=== PATIENT | female | born 1960 | race Caucasian/White ===

== ENCOUNTER → 2016-12-01 | Outpatient (CLI) | payer BC | END | disposition home or self-care (01) | LOC: LABWHC1 09:45 | PROVIDERS: ATTEND Internal Medicine | DX: E03.9 Hypothyroidism, unspecified (principal) | CPT/HCPCS: 36415; 84439; 84443 ==

== ENCOUNTER → 2017-01-11 | Outpatient (CLI) | payer BC | END | disposition home or self-care (01) | LOC: LABWHC1 09:38 | PROVIDERS: ATTEND Internal Medicine | DX: E03.9 Hypothyroidism, unspecified (principal) | CPT/HCPCS: 36415; 84443 ==

== ENCOUNTER 2017-02-05 07:01 | Day surgery (SDC) | payer BC ==
[2017-02-03 15:04] VITALS: BMI 23.3
[~2017-02-05 07:01] MED LIST: LACTATED RINGERS 1,000 ML IV SCH
[2017-02-05 07:13] VITALS: TEMP 98
[2017-02-05] MEDS ORDERED: LACTATED RINGERS 1,000 ML IV ONE (07:15)
[2017-02-05] MEDS ORDERED: LIDOCAINE 1% 20 ML VIAL (10MG/ML) FOR IV START INTRADERMA ONE (07:18)
[2017-02-05] MEDS ORDERED: PROPOFOL 10 MG/ML 20 ML VIAL IV ONE (08:06)
--- NOTE | 2017-02-05 08:24 | P.PCN ---
Date of Procedure: 02/05/17 Preoperative Diagnosis: Postoperative Diagnosis: Procedure(s) Performed: BRIEF HISTORY: Patient is a 56-year-old pleasant white female, scheduled for an elective colonoscopy as a part of change in her bowel habits. She had an episode of C. diff colitis and since that has been having some diarrhea with one to 2 loose bowel movements daily. She denies any rectal bleeding. PROCEDURE PERFORMED: Colonoscopy. PREOPERATIVE DIAGNOSIS: Change in bowel habits IV sedation per Anesthesia. PROCEDURE: After informed consent was obtained, the patient, was brought into the endoscopy unit. IV sedation was administered by Anesthesia under continuous monitoring. Digital rectal examination was normal. Initially the Olympus CF- 160 flexible video colonoscope was then inserted in the rectum, gradually advanced into the cecum without any difficulty. Careful examination was performed as the scope was gradually being withdrawn. Ileocecal valve and the appendiceal orifice were visualized and appeared normal. Prep was excellent. Mucosa of the cecum, ascending colon, transverse colon, descending colon, sigmoid colon, and rectum appeared normal. Retroflexion was performed in the rectum and no lesions were seen. The patient tolerated the procedure well. IMPRESSION: Normal-appearing colon from rectum to cecum with no evidence of colorectal neoplasia . RECOMMENDATIONS: Findings of this examination were discussed with the patient as well as a family. She was advised to have a repeat screening colonoscopy in 10 years. Implants: Indications for Procedure: Operative Findings: Description of Procedure:
[2017-02-05 08:29] VITALS: RESP 16
[2017-02-05 08:44] VITALS: BP 97/53; PULSE 62
== END 2017-02-05 09:02 | disposition home or self-care (01) ==
LOC: ORWHC2ENDO 07:01
PROVIDERS: ATTEND Internal Medicine Gastroenterology
DX: R19.4 Change in bowel habit (principal); Z87.19 Personal history of other diseases of the digestive system; E07.9 Disorder of thyroid, unspecified; Z79.899 Other long term (current) drug therapy
CPT/HCPCS: 45378; J2704

== ENCOUNTER → 2017-05-06 | Outpatient (CLI) | payer BC ==
[2017-05-06 11:04] LABS: Potassium 4.8 mmol/L (3.5-5.1)
== END | disposition home or self-care (01) ==
LOC: LABWHC1 10:09
PROVIDERS: ATTEND Internal Medicine
DX: E87.5 Hyperkalemia (principal); R74.8 Abnormal levels of other serum enzymes
CPT/HCPCS: 36415; 84132; 84450; 84460

== ENCOUNTER → 2017-05-11 | Outpatient (CLI) | payer BC ==
--- NOTE | 2017-05-11 10:00 | US ---
EXAMINATION TYPE: US liver DATE OF EXAM: 05/11/2017 COMPARISON: CT 2016 CLINICAL HISTORY: R74.8 elevated liver enzymes. Patient stated has had 3 doses anesthesia this year; just discovered is allergic to dairy; on thyroid medication EXAM MEASUREMENTS: Liver Length: 14.6 cm Gallbladder Wall: 0.2 cm CBD: 0.3 cm Right Kidney: 10.9 x 5.2 x 4.3 cm Pancreas: Tail obscured by overlying bowel gas Liver: mildly hyperechoic Gallbladder: wnl Evidence for sonographic Maciel's sign: No CBD: wnl Right Kidney: wnl IMPRESSION: 1. Pattern of liver suggestive of fatty infiltration. Hepatitis or hepatocellular disease also in the differential diagnosis.
== END | disposition home or self-care (01) ==
LOC: RADUSWWP 09:13
PROVIDERS: ATTEND Internal Medicine
DX: R74.8 Abnormal levels of other serum enzymes (principal)
CPT/HCPCS: 76705

== ENCOUNTER → 2017-06-30 | Outpatient (CLI) | payer BC | END | disposition home or self-care (01) | LOC: LABWHC1 15:04 | PROVIDERS: ATTEND Internal Medicine | DX: R19.7 Diarrhea, unspecified (principal) | CPT/HCPCS: 36415; 86677 ==

== ENCOUNTER → 2018-03-22 | Outpatient (CLI) | payer BC | END | disposition home or self-care (01) | LOC: LABWHC1 15:58 | PROVIDERS: ATTEND Internal Medicine | DX: E03.9 Hypothyroidism, unspecified (principal) | CPT/HCPCS: 36415; 84443 ==

== ENCOUNTER → 2018-04-26 | Outpatient (CLI) | payer BC | END | disposition home or self-care (01) | LOC: LABWHC1 13:14 | PROVIDERS: ATTEND Internal Medicine | DX: E03.9 Hypothyroidism, unspecified (principal) | CPT/HCPCS: 36415; 84443 ==

== ENCOUNTER → 2018-05-23 | Outpatient (CLI) | payer BC ==
[2018-05-23 17:03] LABS: Basophils % (A) 1 %; Eosinophils # (A) 0.2 k/uL (0-0.7); Eosinophils % (A) 3 %; HCT 40.5 % (34.0-46.0); HGB 13.5 gm/dL (11.4-16.0); Lymphocytes % (A) 27 %; MCH 30.1 pg (25.0-35.0); MCHC 33.3 g/dL (31.0-37.0); MCV 90.4 fL (80.0-100.0); Mean Platelet Volume 6.8; Monocytes # (A) 0.6 k/uL (0-1.0); Monocytes % (A) 8 %; Neutrophils # (A) 4.2 k/uL (1.3-7.7); Neutrophils % (A) 59 %; Platelet Count 233 k/uL (150-450); RBC 4.48 m/uL (3.80-5.40); RDW 13.3 % (11.5-15.5); WBC 7.1 k/uL (3.8-10.6)
[2018-05-23 17:34] LABS: ALT 22 U/L (9-52); AST 28 U/L (14-36); Albumin 3.9 g/dL (3.5-5.0); Alkaline Phosphatase 59 U/L (38-126); Anion Gap 7 mmol/L; Blood Urea Nitrogen 17 mg/dL (7-17); Calcium 9.4 mg/dL (8.4-10.2); Carbon Dioxide 27 mmol/L (22-30); Chloride 107 mmol/L (98-107); Glucose 83 mg/dL (74-99); LDH 534 U/L (313-618); Sodium 141 mmol/L (137-145); Total Bilirubin 0.3 mg/dL (0.2-1.3); Total Protein 6.8 g/dL (6.3-8.2)
[2018-05-23 21:12] LABS: Erythrocyte Sedimentation Rate 6 mm/hr (0-20)
== END | disposition home or self-care (01) ==
LOC: LABWHC1 16:00
PROVIDERS: ATTEND Internal Medicine
DX: C50.919 Malignant neoplasm of unspecified site of unspecified female breast (principal); M54.2 Cervicalgia
CPT/HCPCS: 36415; 80053; 83615; 85025; 85652

== ENCOUNTER → 2018-08-30 | Outpatient (CLI) | payer BC ==
[2018-08-31 02:12] LABS: T4, Free (Free Thyroxine) 1.3 ng/dL (0.80-1.80)
== END | disposition home or self-care (01) ==
LOC: LABWHC1 16:39
PROVIDERS: ATTEND Internal Medicine
DX: E03.9 Hypothyroidism, unspecified (principal)
CPT/HCPCS: 36415; 84439; 84443; 84481

== ENCOUNTER → 2018-10-03 | Outpatient (CLI) | payer BC ==
[2018-10-03 12:16] LABS: Appearance,Urine Clear (Clear); Bilirubin,Urine Negative (Negative); Blood,Urine Negative (Negative); Color,Urine Light Yellow; Glucose,Urine (UA) Negative (Negative); Ketones,Urine Negative (Negative); Leukocyte Esterase,Urine Negative (Negative); Nitrite,Urine Negative (Negative); Protein,Urine Negative (Negative); Specific Gravity,Urine 1.006 (1.001-1.035); Urobilinogen,Urine <2.0 mg/dL (<2.0)
[2018-10-03 12:19] LABS: Basophils # (A) 0.1 k/uL (0-0.2); Basophils % (A) 1 %; Eosinophils # (A) 0.2 k/uL (0-0.7); Eosinophils % (A) 3 %; HCT 43.2 % (34.0-46.0); HGB 14.3 gm/dL (11.4-16.0); Lymphocytes # (A) 1.7 k/uL (1.0-4.8); Lymphocytes % (A) 30 %; MCH 29.1 pg (25.0-35.0); MCV 88.3 fL (80.0-100.0); Mean Platelet Volume 6.7; Monocytes # (A) 0.5 k/uL (0-1.0); Monocytes % (A) 8 %; Neutrophils # (A) 3.1 k/uL (1.3-7.7); Neutrophils % (A) 56 %; Platelet Count 254 k/uL (150-450); RDW 13.7 % (11.5-15.5); WBC 5.7 k/uL (3.8-10.6)
[2018-10-03 13:41] LABS: Erythrocyte Sedimentation Rate 6 mm/hr (0-20)
[2018-10-03 18:35] LABS: Rheumatoid Factor 8 IU/mL (0-15)
[2018-10-03 18:38] LABS: Albumin 4.1 g/dL (3.80-4.90); Albumin/Globulin Ratio 1.95 (1.60-3.17); Anion Gap 6.4 mmol/L (4.00-12.00); Carbon Dioxide 27.6 mmol/L (21.6-31.8); Globulin 2.1 g/dL (1.6-3.3); Potassium 4.7 mmol/L (3.5-5.5); Total Bilirubin 0.4 mg/dL (0.2-1.2); Total Protein 6.2 g/dL (6.2-8.2)
[2018-10-03 18:45] LABS: Vitamin D 25 Hydroxy 44.9 ng/mL (30.0-100.0)
[2018-10-03 18:51] LABS: Folate, Serum >24.0 ng/mL
[2018-10-03 20:47] LABS: Cyclic Citrullinated Pep IgG NEGATIVE (NEGATIVE)
== END | disposition home or self-care (01) ==
LOC: LABWHC1 10:40
PROVIDERS: ATTEND Internal Medicine
DX: Z00.00 Encounter for general adult medical examination without abnormal findings (principal); M25.50 Pain in unspecified joint; R53.83 Other fatigue; E55.9 Vitamin D deficiency, unspecified
CPT/HCPCS: 36415; 80053; 80061; 81003; 82306; 82550; 82607; 82746; 85025; 85652; 86038; 86200; 86431

== ENCOUNTER → 2018-11-11 | Outpatient (CLI) | payer BC ==
[2018-11-11 18:59] LABS: T4, Free (Free Thyroxine) 1.5 ng/dL (0.80-1.80)
== END ==
LOC: LABWHC1 13:38
PROVIDERS: ATTEND Internal Medicine
DX: E03.9 Hypothyroidism, unspecified (principal)
CPT/HCPCS: 36415; 84439; 84443; 84481

== ENCOUNTER → 2020-02-09 | Outpatient (CLI) | payer BC ==
--- NOTE | 2020-02-09 13:21 | PE ---
Nuclear medicine PET/CT HISTORY: Malignant tumor of left breast, C 50.919, subsequent Patient received 9.2 mCi F-18 FDG intravenously in delayed scanning was performed from skull base to the mid thighs. Localization and attenuation correction CT scan was performed. Correlation to CT chest abdomen pelvis 04/20/2016 Neck and chest: There is no mediastinal, axillary, or hilar adenopathy. Patient is status post bilate ral mastectomies. Surgical clips present left axilla. No cervical or supraclavicular adenopathy. No s uspicious hypermetabolic uptake. ABDOMEN: No suspicious uptake. No retroperitoneal adenopathy or liver mass. No ascites. Graph osseous structures: No suspicious uptake. IMPRESSION: Postop changes. No suspicious uptake.
== END | disposition home or self-care (01) ==
LOC: RADPETMAIN 08:59
PROVIDERS: ATTEND Internal Medicine
DX: C50.812 Malignant neoplasm of overlapping sites of left female breast (principal); Z98.890 Other specified postprocedural states
CPT/HCPCS: 78815; A9552

== ENCOUNTER → 2020-06-13 | Outpatient (CLI) | payer BC ==
--- NOTE | 2020-06-13 22:35 | CT ---
EXAMINATION TYPE: CT sinus wo con DATE OF EXAM: 06/13/2020 COMPARISON: 10/09/2014 HISTORY: BANKS, chronic sinusitis and drainage CT DLP: 636.4 mGycm CONTRAST: 0 mL of Isovue 300 The paranasal sinuses are examined in the axial plane at 2 mm thick sections. Reconstructed images i n the coronal plane were obtained. Mastoid air cells within the [id number] are clear. There is a tiny retention cyst within the right maxillary sinus left maxillary sinus is clear. The e thmoid air cells are clear. The sphenoid sinuses are clear. The frontal sinuses are clear. The septum is evaluated. There is septal deviation to the left. The ostiomeatal units are patent. IMPRESSIONS: 1. Tiny new retention cyst within the posterior right maxillary sinus.
== END | disposition home or self-care (01) ==
LOC: RADCTMAIN 18:17
PROVIDERS: ATTEND Internal Medicine
DX: J34.1 Cyst and mucocele of nose and nasal sinus (principal)
CPT/HCPCS: 70486

== ENCOUNTER → 2023-12-03 | Outpatient (CLI) | payer BC ==
--- NOTE | 2023-12-06 13:30 | BMR ---
EXAM DATE: 12/03/2023 EXAM DESCRIPTION: MRI-Breast Bilat (W/WO Contrast) INDICATION: Previous history of bilateral mastectomy and breast cancer surveillance COMPARISON: PRIOR MRIs: None available. Correlation to mammograms: None available . Correlation to ultrasound: None available. CONTRAST: 6.5 cc Gadavist IV gadolinium contrast TECHNIQUE: Study was performed at [facility] with Radiologic interpretation by [facility] Multiplanar multisequence MR imaging of both breasts was performed with a dedicated breast coil. Images were obtained before and after administration of IV gadolinium, using the standard breast mass protocol. Computer aided detection was utilized for interpretation. FINDINGS: General breast composition: Not applicable Background parenchymal enhancement: Minimal RIGHT BREAST: The T2 weighted series shows no areas of abnormal signal intensity. Review of the dynamic series shows no early or abnormal enhancement. LEFT BREAST: The T2 weighted series shows no areas of abnormal signal intensity. Review of the dynamic series shows no early or abnormal enhancement. LYMPH NODES: There is no evidence of internal mammary or axillary adenopathy. IMPRESSION: RIGHT BREAST: No MR evidence of malignancy. LEFT BREAST: No MR evidence of malignancy. OVERALL ASSESSMENT -- BI- RADS 1: Negative MTDD
== END | disposition home or self-care (01) ==
LOC: RADMRIMAIN 07:00
PROVIDERS: ATTEND Family Medicine
DX: C50.912 Malignant neoplasm of unspecified site of left female breast (principal); Z85.3 Personal history of malignant neoplasm of breast; Z90.13 Acquired absence of bilateral breasts and nipples
CPT/HCPCS: 77049; A9585

== ENCOUNTER 2024-01-17 07:39 | Day surgery (SDC) | payer BC ==
[~2024-01-17 07:39] MED LIST changes: +HYDROmorphone 0.5 MG/0.5 ML SYRINGE IVP PRN; -LACTATED RINGERS 1,000 ML IV SCH; +LIDOCAINE 1% (10MG/ML) FOR IV START INTRADERMA PRN; +Pre Op ABX Message 1 EACH MISC MISCELLANE ONE
[2024-01-17] MEDS: IV FLUID CONTINUATION 1,000 ML IV ONE (08:08)
[2024-01-17 08:11] VITALS: TEMP 97.3
[2024-01-17] MEDS: HEPARIN SODIUM,PORCINE 5,000 UNIT/ML 1 ML VIAL SQ PRN (08:26)
[2024-01-17] MEDS: ACETAMINOPHEN TAB 500 MG TAB PO PRN (08:28)
[2024-01-17] MEDS: ONDANSETRON 4 MG/2 ML VIAL IVP ONE (08:28)
[2024-01-17] MEDS: DEXAMETHASONE SOD PHOSPHATE 4 MG/ML 1 ML VIAL IVP STA (08:29)
[2024-01-17] MEDS: LACTATED RINGERS 1,000 ML IV SCH (08:30)
[2024-01-17] MEDS: SCOPOLAMINE 1 MG/72 HR PATCH TRANSDERM STA (08:32)
[2024-01-17] MEDS ORDERED: MIDAZOLAM 2 MG/2 ML VIAL ONE (09:19)
[2024-01-17] MEDS ORDERED: PROPOFOL 10 MG/ML 20 ML VIAL IV ONE (09:19)
[2024-01-17] MEDS ORDERED: LIDOCAINE 1% INJ 10MG/ML (20 ML MDV) ONE (09:19)
[2024-01-17] MEDS ORDERED: PHENYLEPHRINE 10 MG/ML VIAL ONE (09:19)
[2024-01-17] MEDS: BUPIVACAINE (PF) 0.25% 30 ML VIAL SQ ONE ×2 (09:43→09:50)
--- NOTE | 2024-01-17 10:28 | P.OP ---
Date of Procedure: 01/17/24 Procedure(s) Performed: PREOPERATIVE DIAGNOSIS: Colon cancer screening, right upper arm lipoma POSTOPERATIVE DIAGNOSIS: Right upper arm lipoma, diverticulosis PROCEDURE: Excision right upper arm lipoma, intermediate closure, colonoscopy ANESTHESIA: General SURGEON: Humble Kc M.D. SPECIMENS: Lipoma ENDOSCOPIC PROCEDURE: The patient was placed on the operating table in the supine position. The patient's right arm was prepped and draped sterilely. The patient had a palpable lipoma near the antecubital fossa medially above the level of the crease of the arm. A horizontal incision was made overlying after localizing with Marcaine. A subcutaneous lipomatous mass was excised measuring 1.8 cm x 1 cm. This was sent to pathology for close examination. The subcutaneous tissues were closed using 3-0 Vicryl sutures. Skin closed using 4- 0 Monocryl sutures. Skin glue and sterile dressings applied. Patient was then placed in the left cubitus position. The Olympus colonoscope was inserted into the anus and passed under direct visualization to the base of the cecum. The appendiceal orifice was visualized. From that point the scope was slowly withdrawn inspecting all surfaces carefully. There were no neoplastic inflammatory or polypoid lesions throughout the cecum, ascending, transverse, descending, sigmoid and rectum. There was mild left-sided diverticulosis noted. Digital rectal examination was normal. The patient was taken to the recovery room in stable condition per anesthesia guidelines. RECOMMENDATIONS: Await biopsy results. Resume diet. Will contact patient with pathology findings.
[2024-01-17 11:32] VITALS: BP 114/80; PULSE 62; RESP 14
== END 2024-01-17 11:35 ==
LOC: OR 07:39
PROVIDERS: ATTEND Surgery
DX: Z12.11 Encounter for screening for malignant neoplasm of colon (principal); K57.30 Diverticulosis of large intestine without perforation or abscess without bleeding; D17.21 Benign lipomatous neoplasm of skin and subcutaneous tissue of right arm; M19.90 Unspecified osteoarthritis, unspecified site; F32.A Depression, unspecified; E07.9 Disorder of thyroid, unspecified; Z79.890 Hormone replacement therapy; Z79.899 Other long term (current) drug therapy; Z85.3 Personal history of malignant neoplasm of breast; Z88.1 Allergy status to other antibiotic agents; Z88.2 Allergy status to sulfonamides
CPT/HCPCS: 45378; 24075; J2250; J1644; J1100; J2405; J2001; J2704; J2371; J0665; 88304

== ENCOUNTER → 2024-08-23 | Outpatient (CLI) | payer BC ==
--- NOTE | 2024-08-23 15:22 | MR ---
EXAMINATION TYPE: MR lumbar spine wo con DATE OF EXAM: 08/23/2024 1:42 PM COMPARISON: 08/14/2024. CLINICAL INDICATION: Female, 63 years old with history of M54.16 RADICULOPATHY, LUMBAR REGIO, M54.50, M42.06; PHH, Lower back pain, LLE radiculopathy. TECHNIQUE: Multi planar, multi sequence imaging was performed utilizing: T1-weighted, T2-weighted, a nd turbo inversion recovery imaging of the lumbar spine. IV Contrast: mL (None, if empty) FINDINGS: Alignment: The lumbar vertebral bodies have preserved heights and alignment. Cord: The conus medullaris and the distal spinal cord appear unremarkable with regards to their signa l intensity and morphology. Bones/Discs: Mild degeneration changes throughout the spine with osteophyte formation and facet joint arthropathy. Multilevel disc desiccation is present. Reactive adjoining endplate edema at L2-L3 T12-L1: No evidence of significant spinal canal stenosis or neural foraminal stenosis. L1-L2: No evidence of significant spinal canal stenosis or neural foraminal stenosis. L2-L3: Left central and foraminal disc extrusion is 17 mm inferior migration. This displaces the form ing nerves nerves at this level. L3-L4: No evidence of significant spinal canal stenosis or neural fo raminal stenosis. L4-L5: No evidence of significant spinal canal stenosis or neural foraminal stenosis. L5-S1: The disc has a rounded posterior morphology without significant spinal canal stenosis. Facet j oint arthropathy with mild bilateral neural foraminal stenosis. No significant spinal canal or neural foraminal stenosis in the remainder of the visualized levels. Other findings: None. IMPRESSION: 1. L2-L3 left central disc extrusion with inferior migration up to 17 mm displacing multiple nerve n erves forming in the spinal canal. 2. Mild degeneration changes throughout the spine. 3. No evidence for significant spinal canal stenosis. [facility], , 08/23/2024 3:20 PM
== END | disposition home or self-care (01) ==
LOC: RADMRIMAIN 13:00
PROVIDERS: ATTEND Orthopaedic Surgery
DX: M51.16 Intervertebral disc disorders with radiculopathy, lumbar region (principal); M42.06 Juvenile osteochondrosis of spine, lumbar region
CPT/HCPCS: 72148

== ENCOUNTER → 2024-09-11 | Outpatient (CLI) | payer BC ==
--- NOTE | 2024-09-11 08:51 | XR ---
EXAMINATION TYPE: XR chest 2V DATE OF EXAM: 09/11/2024 8:39 AM COMPARISON: Chest radiographs from 10/23/2014, PET/CT 02/09/2020 TECHNIQUE: XR chest 2V Frontal and lateral views of the chest. CLINICAL INDICATION:Female, 63 years old with history of Z01.818 ENCOUNTER FOR OTHER PREPROCEDURAL EX AMINAT; possible lumbar surgery. FINDINGS: Lungs/Pleura: There is no evidence of pleural effusion, focal consolidation, or pneumothorax. Pulmonary vascularity: Unremarkable. Heart/mediastinum: Cardiomediastinal silhouette is unremarkable. Musculoskeletal: No acute osseous pathology. Other findings: Surgical clips within the left axilla. IMPRESSION: No acute cardiopulmonary disease/process. [facility], , 09/11/2024 8:49 AM
[2024-09-11 10:47] LABS: ALT 22 U/L (8-44); AST 23 U/L (13-35); Albumin 4.1 g/dL (3.8-4.9); Albumin/Globulin Ratio 1.71 Ratio (1.60-3.17); Alkaline Phosphatase 76 U/L (41-126); BUN/Creat Ratio 16.62 Ratio (12.00-20.00); Blood Urea Nitrogen 13.3 mg/dL (9.0-27.0); Calcium 9.1 mg/dL (8.7-10.3); Carbon Dioxide 24.2 mmol/L (21.6-31.8); Chloride 109 mmol/L (96-109); Globulin 2.4 g/dL (1.6-3.3); Glucose 97 mg/dL (70-110); Potassium 4.3 mmol/L (3.5-5.5); Sodium 142 mmol/L (135-145); Total Bilirubin 0.2 mg/dL (0.3-1.2); Total Protein 6.5 g/dL (6.2-8.2)
[2024-09-11 11:22] LABS: HCT 42.1 % (37.2-46.3); HGB 13.4 g/dL (12.0-15.0); MCH 28.6 pg (27.0-32.0); MCHC 31.8 g/dL (32.0-37.0); MCV 89.8 FL (80.0-97.0); NRBC Per 100 WBC 0 X 10*3/uL (0.00-0.01); Platelet Count 306 X 10*3/uL (140-440); RBC 4.69 X 10*6/uL (4.10-5.20); RDW 14.1 % (11.5-14.5); WBC 4.69 X 10*3/uL (4.50-10.00)
[2024-09-11 16:51] LABS: INR <0.93 sec (0.93-1.11); Prothrombin Time 10.6 sec (9.9-11.9)
== END | disposition home or self-care (01) ==
LOC: LABPAT 07:18
PROVIDERS: ATTEND Orthopaedic Surgery
DX: Z01.818 Encounter for other preprocedural examination (principal); M47.26 Other spondylosis with radiculopathy, lumbar region; Z22.322 Carrier or suspected carrier of Methicillin resistant Staphylococcus aureus
CPT/HCPCS: 71046; 80053; 85027; 85610; 86850; 86900; 86901; 87070; 93005